=== PATIENT | female | born 1965 | race Two or more races ===

== ENCOUNTER 2016-05-28 01:53 | Emergency (ER) | payer OTHER ==
[~2016-05-28] VITALS: Ht 157.5 cm; Wt 59.0 kg
[2016-05-28 03:00] VITALS: BP 165/79
--- NOTE | 2016-05-28 07:21 | Emergency Room Report ---
History of Present Illness General Chief Complaint: Lower Extremity Injury Source: Patient Present Illness HPI Patient is a 51-year-old female who presented after a fall at work. Patient reportedly fell onto her right side. The patient reported having pain to the right anterior chest as well as to her right knee. The patient denied loss of consciousness. She denied any neck pain. The pain to the chest was worse with right arm movement. The patient denied any numbness to her legs. She denies any back pain. Allergies: Coded Allergies: No Known Allergies (Unverified , 05/28/16) Patient History Reviewed Nursing Documentation: PMH: Agreed, PSxH: Agreed Nursing Documentation-PMH Past Medical History: No Stated History Review of Systems All Other Systems: negative except mentioned in HPI Physical Exam Vital Signs Date Time Temp Pulse Resp B/P Pulse Ox O2 Delivery O2 Flow Rate FiO2 05/28/16 01:56 97.9 83 16 165/79 99 Room Air General Appearance: well appearing, no apparent distress, alert, GCS 15 Head: normocephalic, atraumatic ENT: hearing grossly normal, normal voice Neck: full range of motion, supple Respiratory: no respiratory distress, speaking full sentences Cardiovascular #1: normal inspection, regular rate, rhythm, no edema Gastrointestinal: normal inspection, soft Musculoskeletal: no calf tenderness, decreased range of mation, swelling Neurologic: alert, oriented x3, 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 Differential diagnosis included but was not limited to fracture, contusion, aortic aneurysm, cellulitis. X-ray imaging of the right knee 3 view interpreted by me showed normal bony alignment without fracture. The patient is advised to follow up with primary care doctor in 1-2 days. Patient is advised to return if any worsening condition or if any changes in status that are concerning. Last Vital Signs Date Time Temp Pulse Resp B/P Pulse Ox O2 Delivery O2 Flow Rate FiO2 05/28/16 03:09 97.9 05/28/16 03:00 16 165/79 99 Room Air 05/28/16 01:56 83 Status: improved Disposition: HOME, SELF-CARE Condition: Stable Patient Instructions: Contusion Patrick Herron May 28, 2016 07:21
--- NOTE | 2016-05-28 09:42 | Diagnostic Imaging Report ---
Indication: Right knee pain Technique: XRAY KNEE COMP 4 OR MORE VIEWS RIGHT Comparison: None Findings: There is no acute fracture or dislocation. Anterior knee soft tissue swelling is noted. There is no obvious joint effusion. Bone mineralization is normal. Impression: No acute osseous abnormality. Anterior knee soft tissue swelling.
== END 2016-05-28 03:00 | disposition home or self-care (01) ==
LOC: EMR 02:28
DX: S80.01XA Contusion of right knee, initial encounter (principal); W19.XXXA Unspecified fall, initial encounter; Y92.9 Unspecified place or not applicable
CPT/HCPCS: 99283